=== PATIENT | female | born 1975 | race Caucasian/White ===

== ENCOUNTER 2019-09-08 13:28 | Emergency (ER) | payer OTHER, SELFPAY ==
--- NOTE | ~2019-09-08 | XR_ITS ---
XR chest 2V DATE: 09/08/2019 13:43 INDICATION: Cough, shortness of breath TECHNIQUE: PA and lateral views COMPARISON: 12/06/2012 two-view chest FINDINGS: Normal heart size. No hilar or mediastinal enlargement. The lungs are hyperinflated. No pul monary infiltrate or consolidation, pleural effusion or pulmonary vascular congestion or pneumothorax . IMPRESSION: Bilateral hyperinflation; no active cardiopulmonary disease Reviewed, dictated and finalized at location A.
[2019-09-08 13:33] VITALS: BP 149/110; PULSE 95; RESP 20; TEMP 36.9; O2SAT 100
--- NOTE | 2019-09-08 13:43 | ED.URI ---
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 Patient states she returned from [place] trip mid month and now she now has 1/2-week history of first sore throat which improved, followed by nonproductive cough, nasal congestion, some loose stools, and headache [she has history of migraines]. No fever measured, loss of taste, sick family, sputum changes, nausea/vomiting/dehydration, rash, wheeze-but she would like refill of inhaler she has had previously. She remarks that she gets biannual URIs similar to this in the past, so this is no worse. The patient agrees, in light of health emergency- in my medical judgement, only a personal chat was preferable to fully undress & examine the patient exhibiting potential COVID symptoms, in order to limit risk of infection. The patient has been informed that they may have pre-hypertension or Hypertension based on a BP reading in the department. I recommend that the patient call the primary care provider listed on their discharge instructions or a physician of their choice this week to arrange follow up for further evaluation of possible pre-hypertension or Hypertension Related Data Home Medications Medication Instructions Recorded Confirmed [id number] 1 tablet QID 09/08/19 09/08/19 paroxetine HCl 20 mg PO DAILY 09/08/19 09/08/19 Allergies Allergy/AdvReac Type Severity Reaction Status Date / Time No Known Allergies Allergy Verified 09/08/19 13:30 Review of Systems Review of Systems: Narrative: General/Constitutional: No weight loss,fever Eyes: N0: Redness,discharge Ears/Nose/Throat: No: Epistaxis,ear discharge Respiratory: Denies: Hemoptysis Gastrointestinal: No Vomiting, Bleeding-rectal Skin: No Lumps, eruption Neurologic: No Focal Weakness,Sz Hematologic: Denies: Petechiae/Purpura Psychiatric: No: Suicida ideationl All Other Systems: Reviewed and Negative [facility] Social History Social History Gender identity (if verbalized by the patient): Female Comments At time of signature, agree with nursing past medical, surgical, social and family history. There is no relevant family history pertinent to the presenting complaint Exam Narrative: Exam Narrative: General Appearance: Well appearing, No distress EYE: PERRLA, Conjunctiva clear Ears: External ear normal Nose: Normal nose Mouth/Throat: Normal appearing, Normal lips Neck: Supple Respiratory: Airway patent, No respiratory distress Musculoskeletal: Full ROM Skin: Warm, Dry Neurological: A&O x3, CN II-X intact Psychiatric: Normal mood, Normal affect Course Course Emergency Course: Films visualized, interpreted by radiologist, agree, ABnormal see report Vital Signs Vital signs: Vital Signs Temperature 98.5 F 09/08/19 13:33 Pulse Rate 95 09/08/19 13:33 Respiratory Rate 20 09/08/19 13:33 Blood Pressure 149/110 H 09/08/19 13:33 Pulse Oximetry 100 09/08/19 13:33 Temperature 98.5 F 09/08/19 13:33 Pulse Rate 95 09/08/19 13:33 Respiratory Rate 20 09/08/19 13:33 Blood Pressure 149/110 H 09/08/19 13:33 Pulse Oximetry 100 09/08/19 13:33 Discharge Plan Discharge Clinical Impression: Elevated BP without diagnosis of hypertension Upper respiratory infection Qualifiers: URI type: unspecified URI Qualified Code(s): J06.9 - Acute upper respiratory infection, unspecified Patient Disposition: Home, Self-Care Condition: Stable Instructions: Antibiotic Form, Acute Bronchitis (ED) Additional Instructions: Without fail, get [facility] hospital COVID test as discussed; quarantine/social distance till results final Go to pharmacy and get medicine; Supplements[Vit D , zinc} , pul
== END 2019-09-08 14:06 | disposition home or self-care (01) ==
PROVIDERS: Emergency Provider Emergency Medicine
DX: J06.9 Acute upper respiratory infection, unspecified (principal); R03.0 Elevated blood-pressure reading, without diagnosis of hypertension; Z20.828 Contact with and (suspected) exposure to other viral communicable diseases; F32.9 Major depressive disorder, single episode, unspecified
CPT/HCPCS: 71046; 99213; G0463

== ENCOUNTER 2019-09-29 15:17 | Emergency (ER) | payer OTHER, SELFPAY ==
--- NOTE | ~2019-09-29 | XR_ITS ---
XR chest 2V DATE: 09/29/2019 15:46 INDICATION: Shortness of breath TECHNIQUE: PA and lateral views with gonadal shielding COMPARISON: 09/08/2019 PA and lateral chest FINDINGS: Normal heart size. No hilar or mediastinal enlargement. No pulmonary infiltrate or consolid ation, pleural effusion or pulmonary vascular congestion or pneumothorax. There is levoscoliosis of the thoracic spine. IMPRESSION: No active cardiopulmonary disease Reviewed, dictated and finalized at location A.
--- NOTE | 2019-09-29 15:30 | ED.GENADULT ---
HPI - General Adult General Chief complaint: Upper Respiratory Infection Stated complaint: Shortness of breath Time Seen by Provider: 09/29/19 15:22 Source: patient Mode of arrival: ambulatory Limitations: no limitations History of Present Illness HPI narrative: 44-year-old female patient presents to the [facility] with complaints of shortness of breath and swelling. Patient states that she feels like her legs and feet are swelling over the last couple of days. Patient states she is also feeling more short of breath. Patient was seen on 08 October for similar symptoms and was treated for with Z-Rajiv, Tessalon Perles, codeine cough medicine and an inhaler. Patient was also advised to get a COVID test because she had just returned from [place] at the time of symptoms. Patient states that she never did get the COVID test due to a court appearing that she had to go to. Patient states that she did start to feel better shortly after the medication and the last couple of days she has had some congestion, shortness of breath, feels like bilateral legs are swelling. Denies any chest pain. Denies any fevers, body aches or chills. Patient states she has been using her inhaler at home which has improved her symptoms at times. Patient states she does have a little bit of a cough but is not productive. Patient denies or breast-feeding at this time. Related Data Home Medications Medication Instructions Recorded Confirmed paroxetine HCl 20 mg PO DAILY 09/08/19 09/29/19 Allergies Allergy/AdvReac Type Severity Reaction Status Date / Time No Known Allergies Allergy Verified 09/08/19 13:30 Review of Systems Review of Systems: Narrative: CONSTITUTIONAL: Denies fever, chills, or sweats. EYES: Denies visual changes, redness, or discharge. ENT: Denies rhinorrhea, positive congestion, denies sore throat, or otalgia. Positive itchy ears. CARDIOVASCULAR: Denies chest pain, palpitations, positive edema to bilateral lower extremities. RESPIRATORY: Positive nonproductive cough with dyspnea. GASTROINTESTINAL: Denies abdominal pain, nausea, vomiting, or diarrhea. GENITOURINARY: Denies dysuria or hematuria. SKIN: Denies rash or itching. MUSCULOSKELETAL: Denies back pain, joint pain, or myalgia. NEUROLOGIC: Denies headache, numbness, or weakness. PSYCHIATRIC: Denies anxiety or depression. [facility] Surgical History Surgical History (Updated 09/29/19 @ 15:48 by SOLO Tolliver) Delivery by section X3 H/O tubal ligation History of breast augmentation Social History Social History Gender identity (if verbalized by the patient): Female Comments At the time of my signature I agree with nursing past medical history, surgical, social, and family history. There is no relevant family history pertinent to the presenting complaint. Exam Narrative: Exam Narrative: GENERAL: Well-appearing, well-nourished, and in no acute distress. Patient does have slight slurring to the words and talking in sentences that at times do not make sense. HEAD: Normocephalic, atraumatic. No tenderness noted to frontal maxillary sinuses on palpation EYES: PERRLA and EOMI. ENT: Nares with erythema and edema noted bilaterally, no rhinorrhea or epistaxis. Mucous membranes moist. Posterior pharynx with no erythema, tonsil enlargement, exudates or lesions present. Bilateral TMs are clear with no erythema or foreign bodies in the canal. NECK: Supple. No lymphadenopathy CHEST: Clear to auscultation. No respiratory distress. Patient able talk in clear complete sentences. No tripoding noted. HEART: Regular rate and rhythm. No murmur heard. Normal peripheral pulses. ABDOMEN: Soft, nontender, nondistended, normal active bowel sounds. EXTREMITIES: Normal range of motion. No edema noted to bilateral lower extremities. SKIN: Warm, dry, no rash. NEURO: No focal deficits. Alert and oriented x3. Course Reevalua
[2019-09-29 15:31] VITALS: BP 130/69; PULSE 92; RESP 20; TEMP 37.3; O2SAT 100
--- NOTE | 2019-09-29 15:49 | ECG_ITS ---
Measurements Intervals [place] Rate: 72 P: 66 AK: 130 QRS: 79 QRSD: 93 T: 62 QT: 397 QTc: 434 Interpretive Statements SINUS RHYTHM NORMAL ECG Electronically Signed On 09-30-2019 7:53:02 CDT by Vinnie Arndt D.O.
== END 2019-09-29 16:04 | disposition home or self-care (01) ==
PROVIDERS: Emergency Provider Nurse Practitioner Family; PCP Internal Medicine
DX: J06.9 Acute upper respiratory infection, unspecified (principal); R05 Cough
CPT/HCPCS: 71046; 93005; 99213; G0463

== ENCOUNTER 2019-10-23 06:51 | Emergency (ER) | payer OTHER, SELFPAY ==
[2019-10-23 07:03] VITALS: BP 164/104; PULSE 76; RESP 19; TEMP 36.3; O2SAT 100
[2019-10-23 07:05] VITALS: BP 151/115; PULSE 76; RESP 16; TEMP 36.3; O2SAT 100
--- NOTE | 2019-10-23 07:36 | ED.SKABFB ---
HPI - Skin/Abscess/Foreign Bdy General Chief complaint: Skin/Abscess/Foreign Body Stated complaint: itching Time Seen by Provider: 10/23/19 07:07 Source: patient Mode of arrival: ambulatory Limitations: no limitations History of Present Illness HPI narrative: This patient is a 44 year old female who presents for evaluation of itching. PAtient states she thinks she lives a house with mold and mice. She presented because she is itching all over and she has multiple bug bites. She reports cough and wheezing due to bronchitis. She reports she has a dog but does not think it is fleas. She has an appointment with PCP in 3 hours. She has not taken any medication for itching. Related Data Home Medications Medication Instructions Recorded Confirmed paroxetine HCl 20 mg PO DAILY 09/08/19 09/29/19 Allergies Allergy/AdvReac Type Severity Reaction Status Date / Time No Known Allergies Allergy Verified 10/23/19 07:19 Review of Systems Review of Systems: All systems reviewed & are unremarkable except as noted in HPI and below Respiratory: Respiratory: Reports dyspnea and Reports wheezing Integumentary/Breasts: Skin/Breast: Reports pruritus and Reports rash Allergic/Immunologic: Allergic/Immunologic: Denies throat swelling, Denies tongue swelling and Denies wheezing PMFSH Past Medical History Medical History (Updated 10/23/19 @ 07:40 by Cindy Ortiz MD) Bronchitis Surgical History Surgical History (Updated 09/29/19 @ 15:48 by SOLO Tolliver) Delivery by section X3 H/O tubal ligation History of breast augmentation Social History Social History Gender identity (if verbalized by the patient): Female Exam Const: General: no acute distress and alert Orientation/consciousness: patient oriented x3 Chest: Chest palpation & inspection: normal inspection of the chest Resp: Effort & Inspection: normal respiratory effort, no retractions and no use of accessory muscles Auscultation: clear to auscultation bilaterally Cardio: Rate: regular rate Rhythm: regular rhythm Heart sounds: no murmurs Skin: Other: bug bites to back and arms. Neuro: General: patient oriented x3 and moves all extremities Psych: Mental Status: mental status grossly normal Affect: normal affect Course Course Emergency Course: Patient presented with bites. No wheezing or signs of anaphylaxis. Vital Signs Vital signs: Vital Signs Temperature 97.3 F L 10/23/19 07:03 Pulse Rate 76 10/23/19 07:03 Respiratory Rate 19 10/23/19 07:03 Blood Pressure 164/104 H 10/23/19 07:03 Pulse Oximetry 100 10/23/19 07:03 Temperature 97.3 F L 10/23/19 07:05 Pulse Rate 76 10/23/19 07:05 Respiratory Rate 16 10/23/19 07:05 Blood Pressure 151/115 H 10/23/19 07:05 Pulse Oximetry 100 10/23/19 07:05 Discharge Plan Discharge Clinical Impression: Genital pruritus, Bug bites Patient Disposition: Home, Self-Care Condition: Stable Instructions: Antibiotic Form, Insect Bite or Sting (ED) Additional Instructions: Follow up with your primary care physician. You should check your home for insects /bugs that are biting you. Prescriptions: New loratadine [Claritin] 10 mg tablet 10 mg PO DAILY PRN (Reason: allergy symptoms) Qty: 20 RF: 0 No Action paroxetine HCl 20 mg tablet 20 mg PO DAILY RF: 0 albuterol sulfate [Ventolin HFA] 90 mcg/actuation HFA aerosol inhaler 2 puff INHALATION .Q4 hours PRN (Reason: cough) Qty: 18 RF: 0 fluticasone propionate [Flonase Allergy Relief] 50 mcg/actuation spray,suspension 1 spray NASAL DAILY Qty: 15.8 RF: 0 Follow-up/Referrals: Di,Kiera Bean MD [Primary Care Provider] - Discharge Date/Time: 10/23/19 07:58
[2019-10-23] MEDS: predniSONE 20 MG TABLET 60 MG PO (07:50)
[2019-10-23] MEDS: diphenhydrAMINE HCl INJ 50 MG/ML VIAL IM (07:51)
[2019-10-23] MEDS: FAMOTIDINE 20 MG TABLET PO (07:51)
== END 2019-10-23 07:58 | disposition home or self-care (01) ==
PROVIDERS: Emergency Provider General Practice; PCP Internal Medicine Gastroenterology
DX: L29.2 Pruritus vulvae (principal); S40.862A Insect bite (nonvenomous) of left upper arm, initial encounter; S40.861A Insect bite (nonvenomous) of right upper arm, initial encounter
CPT/HCPCS: 96372; 99283; A9270; J1200; J7512

== ENCOUNTER 2020-10-03 13:50 | Emergency (ER) | payer OTHER, SELFPAY ==
--- NOTE | ~2020-10-03 | XR_ITS ---
EXAMINATION: XR chest 2V DATE: 10/03/2020 14:53 INDICATION: Chest tightness. TECHNIQUE: Frontal and lateral views of the chest were obtained. COMPARISON: Chest 2 views 09/29/2019 FINDINGS: The chest demonstrates clear lungs without pneumonia, pleural effusion, or pneumothorax. Th e heart size is normal. IMPRESSION: 1. No acute cardiopulmonary disease. Reviewed, dictated and finalized at location B.
--- NOTE | ~2020-10-03 | CT_ITS ---
EXAMINATION: CT brain wo con DATE: 10/03/2020 18:39 INDICATION: Headache, anxiety, hypertension TECHNIQUE: Computed tomography (CT) of the head was performed without intravenous contrast. The mA wa s adjusted according to patient size. Iterative reconstruction technique was employed. Exam dose: 60 5.33 mGy-cm total exam DLP. COMPARISON: 01/14/2012 CT brain FINDINGS: No intracranial mass lesion or hemorrhage or cerebrovascular accident. No midline shift or mass effect effect. Normal ventricular size. Normal martino-white matter differentiation. No subdural or epidural hematoma. No fracture or bone destruction of the cranial vault. There is a chronic lesion with prominent calcif ications in the scalp high over the left convexity, currently measuring up to 11.5 mm versus 6 mm dim ension on 01/14/2012. IMPRESSION: No significant intracranial abnormality or skull fracture Reviewed, dictated and finalized at Location A. Reviewed, dictated and finalized at location A.
[2020-10-03 14:13] VITALS: BP 147/105; PULSE 89; RESP 16; TEMP 37.1; O2SAT 100
--- NOTE | 2020-10-03 14:19 | ECG_ITS ---
Measurements Intervals [place] Rate: 80 P: 76 GA: 115 QRS: 76 QRSD: 96 T: 31 QT: 349 QTc: 404 Interpretive Statements SINUS RHYTHM WITH SHORT GA INTERVAL NONSPECIFIC T-WAVE ABNORMALITY- ANTEROLAT/INF LEADS BASELINE WANDER- II, III, AVF BORDERLINE ECG Electronically Signed On 10-03-2020 14:34:19 CDT by Vinnie Arndt D.O.
[2020-10-03 14:36] LABS: Basophils Percent Auto 0.3 % (0.2-1.2); Eosinophils Percent Auto 0.5 % (0-4.4); Hematocrit 37.5 % (37.0-47.0); Hemoglobin 12.2 g/dL (12.0-15.0); Immature Granulocyte Absolute 0.01 K/mm3 (0.00-0.031); Immature Granulocyte Percent A 0.3 % (0-0.5); Lymphocytes Absolute Auto 0.99 K/mm3 (0.9-3.2); Lymphocytes Percent Auto 25.1 % (18.3-44.2); Mean Corpuscular HGB Conc 32.5 g/dl (32-36); Mean Corpuscular Hemoglobin 32.2 pg (26-34); Mean Corpuscular Volume 98.9 fl (80-100); Mean Platelet Volume 10.8 fl (7.4-10.4); Monocytes Absolute Auto 0.5 K/mm3 (0.1-0.6); Monocytes Percent Auto 12.4 % (2.6-8.5); Neutrophils Absolute Auto 2.4 K/mm3 (1.3-6.7); Neutrophils Percent Auto 61.4 % (45.5-73.1); Platelet Count Result 156 k/mm3 (150-375); Red Blood Count 3.79 M/mm3 (4.2-5.4); Red Cell Distribution Width 12.1 % (11.5-14.5)
[2020-10-03 14:53] LABS: Anion Gap 5 mmol/L (8-16); Blood Urea Nitrogen 13 mg/dL (7-17); Calcium 8.7 mg/dL (8.4-10.2); Carbon Dioxide 25 mmol/L (22-30); Chloride 106 mmol/L (98-107); Estimated CRCL calculation 94 ml/min; Estimated Glomerular Filt Rate > 60; Glucose 82 mg/dL (65-110); Potassium 3.4 mmol/L (3.4-5.0); Sodium 136 mmol/L (137-145)
[2020-10-03 15:04] LABS: Troponin I 0.014 ng/mL (0.000-0.034)
[2020-10-03 15:07] LABS: Prothrombin Time 13.3 Seconds (11.1-14.7)
[2020-10-03 15:08] LABS: Partial Thromboplastin Time 27.4 SECONDS (22.3-36.8)
[2020-10-03 17:53] VITALS: BP 168/118; PULSE 67; RESP 12; O2SAT 100
[2020-10-03 18:16] LABS: Troponin I < 0.012 ng/mL (0.000-0.034)
--- NOTE | 2020-10-03 18:33 | PC.NURSE ---
Patient to radiology.
--- NOTE | 2020-10-03 19:08 | ED.HA ---
HPI - Headache General Chief Complaint: Headache Stated Complaint: walker Time Seen by Provider: 10/03/20 17:41 Source: patient Mode of arrival: ambulatory Limitations: no limitations History of Present Illness HPI Narrative: 45-year-old female She is here complaining about a headache that has been present for weeks to months Present almost all the time and does not respond well to [id number] medications She had a ENT appointment earlier this week and was diagnosed with TMJ and chronic sinusitis at that time but has only been on meds for a couple days Also reports a possible migraine history She also saw pulmonary physician earlier this week because of what sounds like concerns over a possible mold exposure Both times she had modest blood pressure elevations noted but apparently neither office wanted to prescribe antihypertensives to her She says that she used to be on blood pressure medication, not sure which one (per chart maybe lisinopril) but it lapsed during Covid Her right arm has also been bothering her, she does not have any neck pain or radicular symptoms though Her history seems kind of pressured and anxious Related Data Home Medications Medication Instructions Recorded Confirmed paroxetine HCl 20 mg PO DAILY 09/08/19 10/02/20 lisinopril 10/03/20 Allergies Allergy/AdvReac Type Severity Reaction Status Date / Time No Known Allergies Allergy Verified 10/02/20 11:01 Review of Systems Review of Systems: All systems reviewed & are unremarkable except as noted in HPI and below Constitutional: Constitutional: Reports no additional constitutional complaints, Denies chills, Denies fever(s) and Denies headache(s) Eyes: Eyes: Reports no additional eye complaints and Denies change in vision ENT: Denies headache(s) and Denies sore throat Comments: Sinus pain, jaw pain Cardiovascular: Cardiovascular: Reports chest pain and Denies dyspnea Respiratory: Respiratory: Denies cough and Denies dyspnea Gastrointestinal: Gastrointestinal: Denies abdominal pain, Denies diarrhea and Denies vomiting Genitourinary: Genitourinary: Denies urinary frequency and Denies dysuria Musculoskeletal: Musculoskeletal: Reports myalgias, Denies deformity, Reports arthralgias, Denies joint swelling and Denies numbness Integumentary/Breasts: Skin/Breast: Denies erythema, Denies rash and Denies wounds Neurologic: Reports headache(s), Denies focal weakness and Denies numbness Psychiatric: Psychiatric: Reports no additional psychiatric complaints Endocrine: Endocrine: Reports no additional endocrine complaints Hematologic/Lymphatic: Hematologic/Lymphatic: Reports no additional hematologic/lymphatic complaints Allergic/Immunologic: Allergic/Immunologic: Reports no additional allergic/immunologic complaints [facility] Past Medical History Medical History Bronchitis Surgical History Surgical History (Updated 09/29/19 @ 15:48 by SOLO Tolliver) Delivery by section X3 H/O tubal ligation History of breast augmentation Family History Family History Father Heart disease Mother Cancer Depression Other Asthma Grandparent Cancer Grandparent Cancer Social History Social History Smoking status: Never smoker Alcohol intake: current Substance use: never Substance use type: does not use Gender identity (if verbalized by the patient): Female Exam Const: General: cooperative, healthy appearing, no acute distress and alert Orientation/consciousness: patient oriented x3 (alert) HENMT: Head: normal to inspection, normocephalic and atraumatic Ears: external ears normal General nose exam: no epistaxis Face and sinus: sinus tenderness Other: TMJs are minimally tender and no palpable clicks Eyes: Conjunctivae:
[2020-10-03] MEDS: HALOPERIDOL LACTATE 5 MG/ML VIAL IV PUSH (19:14)
[2020-10-03] MEDS: diphenhydrAMINE HCl INJ 50 MG/ML VIAL 25 MG IV PUSH (19:14)
[2020-10-03] MEDS: KETOROLAC 30 MG/ML VIAL (*BKC) 15 MG IV PUSH (19:14)
[2020-10-03 19:21] VITALS: BP 166/108; PULSE 74; RESP 18; O2SAT 97
[2020-10-03 19:56] LABS: Amphetamine Screen Urine Negative (Negative); Barbiturate Screen Urine Negative (Negative); Benzodiazepines Screen Urine Negative (Negative); Cannabinoid Screen Urine Positive (Negative); Cocaine Screen Urine Negative (Negative); Methadone Screen Urine Negative (Negative); Opiate Screen Urine Negative (Negative); Phencyclidine Screen Urine Negative (Negative)
[2020-10-03 20:55] VITALS: BP 163/99; PULSE 64; RESP 14; TEMP 36.6; O2SAT 98
== END 2020-10-03 20:58 | disposition home or self-care (01) ==
PROVIDERS: Emergency Medicine; Emergency Provider Emergency Medicine; PCP Internal Medicine Gastroenterology
DX: R51.9 Headache, unspecified (principal); I10 Essential (primary) hypertension
CPT/HCPCS: 36415; 70450; 71046; 80048; 80307; 81025; 84484; 85025; 85610; 85730; 93005; 96374; 96375; 99284; J1200; J1630; J1885